=== PATIENT | male | born 1980 | race Caucasian/White ===

== ENCOUNTER 2018-06-12 08:09 | Day surgery (SDC) | payer OTHER ==
[2018-06-12] MEDS ORDERED: LACTATED RINGERS 1,000 ML IV ONE (08:17)
[2018-06-12] MEDS ORDERED: fentaNYL 100 MCG/2 ML VIAL IVP ONE (09:24)
[2018-06-12] MEDS ORDERED: MIDAZOLAM 2 MG/2 ML VIAL IVP ONE (09:24)
[2018-06-12 10:05] VITALS: BP 104/81
== END 2018-06-12 08:10 | disposition home or self-care (01) ==
LOC: SDS 08:09
PROVIDERS: ATTEND Internal Medicine Gastroenterology
PROC: 0DBN8ZZ Excision of Sigmoid Colon, Via Natural or Artificial Opening Endoscopic (ICD-10-PCS; principal; 2018-06-12 09:30)
DX: R19.4 Change in bowel habit (principal); R10.32 Left lower quadrant pain; R10.31 Right lower quadrant pain; D12.5 Benign neoplasm of sigmoid colon
CPT/HCPCS: 45380; J7120